=== PATIENT | male | born 1980 | race Two or more races ===

== ENCOUNTER 2019-01-30 14:26 | Outpatient (CLI) | payer OTHER ==
[~2019-01-30 14:26] MED LIST: AMOX1TAB64 PO; OXYC-306 PO
[2019-01-30] MEDS ORDERED: No meds per pt. (14:56)
== END 2019-01-30 23:59 | disposition home or self-care (01) ==
LOC: STAR 14:26
PROVIDERS: ATTEND Colon & Rectal Surgery
DX: Z02.9 Encounter for administrative examinations, unspecified (principal)

== ENCOUNTER 2019-02-05 06:11 | Day surgery (SDC) | payer OTHER ==
[2019-01-30 14:57] VITALS: BP 127/71
[~2019-02-05] VITALS: Ht 185.4 cm; Wt 114.0 kg
[~2019-02-05 06:11] MED LIST changes: +No meds per pt.
[2019-02-05] MEDS ORDERED: BUPIVACAINE/PF 0.5% ONE (06:57)
[2019-02-05] MEDS ORDERED: EPINEPHRINE 1 MG/ML, 1ML ONE (06:57)
[2019-02-05] MEDS ORDERED: LACTATED RINGERS 1,000 ML IV SCH (06:58)
[2019-02-05] MEDS ORDERED: MIDAZOLAM 1 MG/ML, 2ML ONE (07:19)
[2019-02-05] MEDS ORDERED: FENTANYL PF 250 MCG/5ML ONE (07:19)
[2019-02-05] MEDS ORDERED: OXYcodone 5 MG/5 ML ORAL.SOL UDC PO PRN (07:30)
[2019-02-05] MEDS ORDERED: ONDANSETRON 2MG/ML, 2ML IV PRN (07:30)
[2019-02-05] MEDS ORDERED: MEPERIDINE/PF 25MG/0.5ML IVPush PRN (07:30)
[2019-02-05] MEDS ORDERED: ACETAMINOPHEN 325 MG TABLET PO PRN (07:30)
[2019-02-05] MEDS ORDERED: ONDANSETRON ODT 8 MG PO PRN (07:30)
[2019-02-05] MEDS ORDERED: FENTANYL PF 100 MCG/2ML IV PRN (07:30)
[2019-02-05] MEDS ORDERED: HYDROmorphone 2 MG/ML, 1ML IVPush PRN (07:30)
[2019-02-05] MEDS ORDERED: PROMETHAZINE 25 MG/ML, 1ML IV PRN (07:30)
[2019-02-05] MEDS ORDERED: BUPIVACAINE LIPOSOME/PF 10ML INFIL ONE (08:00)
[2019-02-05] MEDS ORDERED: ONDANSETRON 2MG/ML, 2ML ONE ×2 (08:03→08:26)
[2019-02-05] MEDS ORDERED: NEOSTIGMINE 1 MG/ML, 10ML ONE (08:03)
[2019-02-05] MEDS ORDERED: CEFAZOLIN 1,000 MG ONE (08:03)
[2019-02-05] MEDS ORDERED: GLYCOPYRROLATE 0.2MG/1ML, 5ML ONE (08:03)
[2019-02-05] MEDS ORDERED: ROCURONIUM 10MG/ML,5ML ONE (08:03)
[2019-02-05] MEDS ORDERED: SUCCINYLCHOLINE 20 MG/ML, 10ML ONE (08:03)
[2019-02-05] MEDS ORDERED: PROPOFOL 10 MG/ML, 20ML ONE (08:03)
[2019-02-05] MEDS ORDERED: DEXAMETHASONE 4 MG/ML, 1ML ONE (08:03)
[2019-02-05] MEDS ORDERED: CEFOTETAN 2 GM ONE (10:23)
== END 2019-02-05 10:20 | disposition home or self-care (01) ==
LOC: OUT 06:11
PROVIDERS: ATTEND Colon & Rectal Surgery
DX: K60.3 Anal fistula (principal); Z98.890 Other specified postprocedural states
CPT/HCPCS: 46270; J0171; J0330; J0690; J1100; J2250; J2405; J2704; J2710; J3010; J3490; J7120